=== PATIENT | male | born 1985 | race Caucasian/White ===

== ENCOUNTER 2016-10-08 23:14 | Emergency (ER) | payer SELFPAY ==
[2016-10-08 23:23] VITALS: PULSE 75; TEMP 97.9; BMI 35.2
[2016-10-09] MEDS ORDERED: Lidocaine 2%-Epinephrine 1:100,000 20ml vial INF ONE (02:05)
[2016-10-09] MEDS ORDERED: DIPHTHERIA AND TETANUS (ADULT) 0.5 ML SYR IM ONE (03:03)
--- NOTE | 2016-10-09 03:04 | EDPRACDOC ---
- General Information Information Source: Patient Home Medications: Home Medications Ibuprofen Tablet [Motrin] 800 mg PO TID PRN #30 tab 10/09/16 Allergies/Adverse Reactions: Allergies Allergy/AdvReac Type Severity Reaction Status Date / Time amoxicillin Allergy Hives* Verified 10/08/16 23:22 - History of Present Illness Onset: 2229 HPI: C/o stepping onto a dumbbell and lacerating bottom of right foot on lateral side. Bleeding controlled. - Tetanus Status Last Tetanus: No - Pain Pain Severity: Mild Bleeding: Reports: Controlled Associated Signs & Symptoms: Reports: None ED Past Medical History - History Reviewed Yes Nurses notes reviewed and agree except as marked - Patient Medical History Psychological History: Denies: Depression - Social Medical History Smoking Status: Never smoker EDM Review of Systems - Review of Systems ROS Negative Except as Marked: Yes All systems reviewed and were negative except as marked Integumentary: Wound (laceration to lateral right foot on sole) - Physical Exam Constitutional: No apparent distress, Alert Oriented to: Time, Person, Place Last recorded Vital Signs: Last Vital Signs Temp 97.9 F 10/08/16 23:15 Pulse 75 10/08/16 23:15 Resp 20 10/08/16 23:15 BP 122/58 L 10/08/16 23:15 Pulse Ox 95 10/08/16 23:15 Oxygen Pulse Oxygen Saturation 95 O2 Device Room Air Oxygen Flow Rate Fraction of Inspired Oxygen ( FIO2) - HEENT Head: Normal Eye Exam: negative: Conjunctival Injection, Scleral Icterus Oropharynx: negative: Drooling TMJ: Normal Nose: No Symptoms Reported Neck: Normal - Respiratory/Cardiovascular Respiratory: Normal - CTA Cardiovascular: Normal - GI Tenderness: Non tender - Musculoskeletal Back: Normal Extremities: Normal - Integumentary Skin: Normal - Neurologic Motor Function: Normal Mood Description: Normal Thought: Coherent Perception: Normal Other Exam Findings: pulses, motor function and sensation intact distal to laceration. ED Procedures - Suture/Laceration Suture #1 Right Lateral Volar Foot Wound Length (cm): 6 Wound's Depth, Shape: superficial Wound Explored: clean Irrigated w/ Saline (ccs): 70 Betadine Prep?: Yes Anesthesia: 1% Lidocaine Volume Anesthetic (ccs): 6 Wound Debrided: minimal Wound Undermining: minimal Wound Margins: Revised Wound Repaired With: Sutures Suture Size/Type: 4:0, prolene Number of Sutures: 10 Layer Closure?: No Sterile Dressing Applied?: Yes Decision Time to Discharge: 03:05 - Departure Disposition: Home Condition: Stable Final Diagnosis: Laceration Instructions: Laceration (ED) Education/Counseling Given To: Patient Education/Counseling Given Regarding: Diagnosis, Treatment, Prognosis, Follow Up Referrals: Arianna Charles ASSISTANT CASE MANAGER [Primary Care Provider] - One Week Prescriptions: New Ibuprofen Tablet [Motrin] 800 mg PO TID PRN #30 tab PRN Reason: Pain Forms: Excuse Note Additional Instructions: Follow up with primary care. Keep wound dry and clean for at least 2 days. Sutures should come out in 10-14 days. Return to ED for any new or worsening symptoms.
[2016-10-09 03:13] VITALS: BP 117/55
== END 2016-10-09 03:28 | disposition home or self-care (01) ==
LOC: ED 23:14
DX: S91.311A Laceration without foreign body, right foot, initial encounter (principal); W45.8XXA Other foreign body or object entering through skin, initial encounter; Y93.9 Activity, unspecified; Z23 Encounter for immunization
CPT/HCPCS: 12002; 90471; 90714; 99283; J3490